=== PATIENT | male | born 1950 | race Caucasian/White ===

== ENCOUNTER → 2024-01-18 08:11 | Outpatient (REF) | payer MEDICARE, OTHER, SELFPAY | LOC: DHCBS HW 08:11 | PROVIDERS: ATTENDING PHYSICIAN Internal Medicine Cardiovascular Disease; FAMILY PHYSICIAN Nurse Practitioner Primary Care | DX: I35.0 Nonrheumatic aortic (valve) stenosis (principal) | CPT/HCPCS: 93306 ==

== ENCOUNTER → 2025-01-09 09:02 | Outpatient (REF) | payer MEDICARE, OTHER, SELFPAY | LOC: HWRCS 09:02 | PROVIDERS: ATTENDING PHYSICIAN Internal Medicine Cardiovascular Disease; FAMILY PHYSICIAN Nurse Practitioner Primary Care | DX: I35.0 Nonrheumatic aortic (valve) stenosis (principal) | CPT/HCPCS: 93306 ==

== ENCOUNTER → 2025-05-26 08:45 | Outpatient (REF) | payer MEDICARE, OTHER, SELFPAY | LOC: RCS 08:45 | PROVIDERS: ATTENDING PHYSICIAN Internal Medicine Cardiovascular Disease | DX: I35.0 Nonrheumatic aortic (valve) stenosis (principal); I48.0 Paroxysmal atrial fibrillation | CPT/HCPCS: 93017 ==

== ENCOUNTER → 2025-06-25 11:10 | Outpatient (REF) | payer MEDICARE, OTHER, SELFPAY | LOC: HWRCS 11:10 | PROVIDERS: ATTENDING PHYSICIAN Internal Medicine Cardiovascular Disease; FAMILY PHYSICIAN Nurse Practitioner Primary Care | DX: I35.0 Nonrheumatic aortic (valve) stenosis (principal); I48.0 Paroxysmal atrial fibrillation | CPT/HCPCS: 93306 ==

== ENCOUNTER → 2025-08-28 07:43 | Outpatient (REF) | payer MEDICARE, OTHER, SELFPAY | LOC: HWRAD 07:43 | PROVIDERS: ATTENDING PHYSICIAN Nurse Practitioner Primary Care | DX: E11.9 Type 2 diabetes mellitus without complications (principal); R79.89 Other specified abnormal findings of blood chemistry; E78.2 Mixed hyperlipidemia; R17 Unspecified jaundice | CPT/HCPCS: 76700 ==